=== PATIENT | male | born 1955 | race Caucasian/White ===

== ENCOUNTER 2019-06-10 14:50 | Emergency (ER) | payer MEDICAID ==
[~2019-06-10] VITALS: Ht 172.7 cm; Wt 100.0 kg
[2019-06-10] MEDS ORDERED: KETOROLAC 60MG/2ML VIAL IM ONE (16:15)
[2019-06-10 17:35] VITALS: BP 143/74
== END 2019-06-10 17:35 | disposition home or self-care (01) ==
LOC: ER 15:45
DX: S70.01XA Contusion of right hip, initial encounter (principal); G89.29 Other chronic pain; M54.9 Dorsalgia, unspecified; I10 Essential (primary) hypertension; J45.909 Unspecified asthma, uncomplicated; W18.39XA Other fall on same level, initial encounter; Y93.89 Activity, other specified; Y92.89 Other specified places as the place of occurrence of the external cause; Y99.8 Other external cause status
CPT/HCPCS: 73502; 96372; 99283; J1885

== ENCOUNTER 2019-09-06 08:56 | Inpatient (IN) | payer MEDICAID ==
[~2019-09-06] VITALS: Ht 175.3 cm; Wt 113.4 kg
[2019-09-06] MEDS ORDERED: SODIUM CHLORIDE 0.9% 1,000 ML IV ONE (09:44)
[2019-09-06 10:09] LABS: HEMATOCRIT. 31.3 % (42.0-52.0); HEMOGLOBIN. 9.5 g/dL (14.0-18.0); MEAN CORPUSCULAR HEMOGLOBIN 22.9 pg (28.0-32.0); MEAN CORPUSCULAR VOLUME 75.4 fL (80.0-94.0); MEAN PLATELET VOLUME 8.5 fl (7.4-10.4); PLATELET 96 x1000/uL (130-400); RED BLOOD CELL COUNT 4.15 mill/uL (4.7-6.1); RED CELL DISTRIBUTION WIDTH 21.7 % (11.6-14.6)
[2019-09-06 10:15] LABS: CHLORIDE 114 mEq/L (98-107)
[2019-09-06 10:16] LABS: INR 1.8; PROTHROMBIN TIME 18.5 sec (9.6-11.0)
[2019-09-06 10:20] LABS: ETHANOL BLOOD < 10 mg/dL
[2019-09-06 10:33] LABS: PLATELET ESTIMATE DECREASED
[2019-09-06 10:39] LABS: CREATINE KINASE 5046 IU/L (39-308)
[2019-09-06 10:48] LABS: CLARITY URINE CLEAR (CLEAR); COLOR URINE DARK YELLOW (YELLOW); KETONES URINE 1+ (NEGATIVE); LEUKOCYTE ESTERASE URINE 1+ (NEGATIVE); NITRITE URINE POSITIVE (NEGATIVE); OCCULT BLOOD URINE NEGATIVE (NEGATIVE); PH URINE 5.5 (4.5-8.0); PROTEIN URINE NEGATIVE (NEGATIVE); SPECIFIC GRAVITY URINE 1.025 (1.005-1.030)
[2019-09-06] MEDS ORDERED: PIPERACILLIN/TAZ 3.375G PREMIX 50 ML IV ONE (11:30)
[2019-09-06] MEDS ORDERED: VANCOMYCIN 1 G PREMIX 200 ML IV ONE (11:30)
[2019-09-06] MEDS ORDERED: SODIUM CHLORIDE 0.9% 1000ML BAG (SEPSIS BOLUS) IV ONE (11:30)
[2019-09-06 12:16] LABS: *AMPHETAMINES SCREEN URINE NEGATIVE (NEGATIVE); *BARBITURATES SCREEN URINE NEGATIVE (NEGATIVE)
[2019-09-06 12:17] LABS: *BENZODIAZEPINES SCREEN URINE NEGATIVE (NEGATIVE); *COCAINE SCREEN URINE NEGATIVE (NEGATIVE); METHADONE URINE SCREEN NEGATIVE (NEGATIVE); OPIATES URINE SCREEN NEGATIVE (NEGATIVE); PHENCYCLIDINE URINE SCREEN NEGATIVE (NEGATIVE)
[2019-09-06 12:19] LABS: CANNABINOID URINE SCREEN NEGATIVE (NEGATIVE)
[2019-09-06] MEDS ORDERED: LORAZEPAM 2MG/ML CPJ IV ONE ×2 (13:15→14:15)
[2019-09-06] MEDS ORDERED: DOCUSATE SODIUM 100MG CAPSULE PO PRN (19:00)
[2019-09-06] MEDS ORDERED: HYDROCODONE/ACETAMINOPHEN 5/325MG TABLET PO PRN (19:00)
[2019-09-06] MEDS ORDERED: ONDANSETRON HCL 4MG/2ML INJ IV PRN (19:00)
[2019-09-06] MEDS ORDERED: IPRATROPIUM/ALBUTEROL 0.5-3(2.5)MG/3ML NEB HHN PRN (19:00)
[2019-09-06] MEDS ORDERED: MAGNESIUM/ALUMINUM HYDROXIDE/SIMETHICONE 30ML UDC PO PRN (19:00)
[2019-09-06] MEDS ORDERED: CLONIDINE 0.1MG TABLET PO PRN (19:00)
[2019-09-06] MEDS ORDERED: ACETAMINOPHEN 325MG TABLET PO PRN (19:00)
[2019-09-06] MEDS ORDERED: DEXT 5%/LACTATED RINGERS 1,000 ML IV SCH (19:15)
[2019-09-06] MEDS ORDERED: DEXT 5%/0.9% NACL 1,000 ML IV SCH (19:15)
[2019-09-06] MEDS ORDERED: PIPERACILLIN/TAZOBACTAM 3.375 G in DEXT 5% WATER 100 ML IV SCH (19:30)
[2019-09-06] MEDS: LORAZEPAM 2MG/ML CPJ IV PRN ×2 (20:21→22:36)
[2019-09-06 22:30] VITALS: BP 143/92
[2019-09-06 23:56] LABS: HEPATITIS B SURFACE ANTIGEN NEGATIVE
[2019-09-07] VITALS (8 sets, daily range): BP systolic 121–188; BP diastolic 67–139
[2019-09-07] MEDS ORDERED: CEFTRIAXONE 1 G PREMIX 50 ML IV SCH
[2019-09-07 00:26] LABS: HEPATITIS A AB IGM NEGATIVE (NEGATIVE)
[2019-09-07] MEDS: LORAZEPAM 2MG/ML CPJ IV PRN (04:51)
[2019-09-07 05:28] LABS: CHLORIDE 123 mEq/L (98-107)
[2019-09-07 05:35] LABS: PHOSPHORUS 3.7 mg/dL (2.5-4.9)
[2019-09-07 05:36] LABS: LDL CHOLESTEROL 69 mg/dL (5-100)
[2019-09-07 05:39] LABS: HDL CHOLESTEROL 15 mg/dL (40-59)
[2019-09-07 05:50] LABS: CREATINE KINASE 2321 IU/L (39-308)
[2019-09-07 06:19] LABS: HEMATOCRIT. 25.7 % (42.0-52.0); HEMOGLOBIN. 8.4 g/dL (14.0-18.0); MEAN CORPUSCULAR HEMOGLOBIN 25.6 pg (28.0-32.0); MEAN CORPUSCULAR VOLUME 78.5 fL (80.0-94.0); MEAN PLATELET VOLUME 8.5 fl (7.4-10.4); PLATELET 81 x1000/uL (130-400); RED BLOOD CELL COUNT 3.28 mill/uL (4.7-6.1); RED CELL DISTRIBUTION WIDTH 21.8 % (11.6-14.6)
[2019-09-07] MEDS: SODIUM CHLORIDE 0.45% 1,000 ML IV SCH ×2 (07:15→15:15)
[2019-09-07] MEDS: PANTOPRAZOLE SODIUM 40 MG/VIAL IV SCH (10:41)
[2019-09-07 10:44] LABS: CREATINE KINASE 1844 IU/L (39-308)
[2019-09-07] MEDS: MULTIVITAMINS,THER W-MINERALS TABLET PO SCH (12:26)
[2019-09-07] MEDS: THIAMINE HCL 100MG TABLET PO SCH (12:26)
[2019-09-07] MEDS: VANCOMYCIN 1 G PREMIX 200 ML IV SCH (12:26)
[2019-09-07] MEDS: CHLORDIAZEPOXIDE 25MG CAPSULE PO SCH ×2 (13:41→21:48)
[2019-09-07 16:53] LABS: NUCLEATED RED BLOOD CELLS 3 /100 WBC
[2019-09-07 16:54] LABS: PLATELET ESTIMATE DECREASED
[2019-09-07 18:16] LABS: CREATINE KINASE 1665 IU/L (39-308)
[2019-09-08] VITALS (15 sets, daily range): BP systolic 134–155; BP diastolic 64–99
[2019-09-08] MEDS: SODIUM CHLORIDE 0.45% 1,000 ML IV SCH (00:25)
[2019-09-08] MEDS ORDERED: CEFTRIAXONE 1 G PREMIX 50 ML IV SCH (01:00)
[2019-09-08] MEDS: VANCOMYCIN 1 G PREMIX 200 ML IV SCH (01:05)
[2019-09-08] MEDS: LORAZEPAM 2MG/ML CPJ IV PRN (01:10)
[2019-09-08] MEDS: CHLORDIAZEPOXIDE 25MG CAPSULE PO SCH ×3 (05:54→21:54)
[2019-09-08 06:50] LABS: HEMATOCRIT. 25.9 % (42.0-52.0); HEMOGLOBIN. 8.7 g/dL (14.0-18.0); MEAN CORPUSCULAR HEMOGLOBIN 26.8 pg (28.0-32.0); MEAN CORPUSCULAR VOLUME 79.8 fL (80.0-94.0); MEAN PLATELET VOLUME 8.6 fl (7.4-10.4); PLATELET 78 x1000/uL (130-400); RED BLOOD CELL COUNT 3.25 mill/uL (4.7-6.1); RED CELL DISTRIBUTION WIDTH 21.9 % (11.6-14.6)
[2019-09-08 06:54] LABS: CHLORIDE 127 mEq/L (98-107)
[2019-09-08 07:00] LABS: PHOSPHORUS 2.6 mg/dL (2.5-4.9)
[2019-09-08 07:16] LABS: CREATINE KINASE 1249 IU/L (39-308)
[2019-09-08] MEDS ORDERED: POTASSIUM CHLORIDE 20MEQ TABLET SR PO NR (08:00)
[2019-09-08] MEDS: DEXTROSE 5% WATER 1,000 ML IV SCH ×2 (08:00→18:00)
[2019-09-08] MEDS: PANTOPRAZOLE SODIUM 40 MG/VIAL IV SCH (09:00)
[2019-09-08] MEDS: THIAMINE HCL 100MG TABLET PO SCH (09:00)
[2019-09-08] MEDS: MULTIVITAMINS,THER W-MINERALS TABLET PO SCH (09:00)
[2019-09-08] MEDS ORDERED: VANCOMYCIN 1250MG in DEXTROSE 5% WATER 250ML IV SCH (10:00)
[2019-09-08] MEDS: FOLIC ACID 1MG TABLET PO SCH (12:58)
[2019-09-08 13:21] LABS: PLATELET ESTIMATE DECREASED
[2019-09-08] MEDS: CEFAZOLIN 2,000 MG in DEXT 5% WATER 100 ML IV SCH (21:54)
[2019-09-08] MEDS: BACITRACIN 15GM TUBE TOP SCH (21:55)
[2019-09-09] VITALS (14 sets, daily range): BP systolic 74–167; BP diastolic 41–100
[2019-09-09] MEDS: DEXTROSE 5% WATER 1,000 ML IV SCH ×3 (06:24→21:46)
[2019-09-09] MEDS: CHLORDIAZEPOXIDE 25MG CAPSULE PO SCH ×3 (06:24→21:43)
[2019-09-09] MEDS: CEFAZOLIN 2,000 MG in DEXT 5% WATER 100 ML IV SCH ×3 (06:24→21:46)
[2019-09-09 06:35] LABS: CHLORIDE 120 mEq/L (98-107)
[2019-09-09 06:46] LABS: HEMOGLOBIN. 8.5 g/dL (14.0-18.0); MEAN CORPUSCULAR HEMOGLOBIN 26.3 pg (28.0-32.0); MEAN CORPUSCULAR VOLUME 80.3 fL (80.0-94.0); MEAN PLATELET VOLUME 8.5 fl (7.4-10.4); PLATELET 80 x1000/uL (130-400); RED BLOOD CELL COUNT 3.23 mill/uL (4.7-6.1); RED CELL DISTRIBUTION WIDTH 21.7 % (11.6-14.6)
[2019-09-09] MEDS ORDERED: POTASSIUM CHLORIDE 20MEQ/PACKET PO NR (08:15)
[2019-09-09] MEDS: PANTOPRAZOLE SODIUM 40 MG/VIAL IV SCH (09:05)
[2019-09-09] MEDS: MULTIVITAMINS,THER W-MINERALS TABLET PO SCH (09:06)
[2019-09-09] MEDS: BACITRACIN 15GM TUBE TOP SCH (09:06)
[2019-09-09] MEDS: THIAMINE HCL 100MG TABLET PO SCH (09:06)
[2019-09-09] MEDS: FOLIC ACID 1MG TABLET PO SCH (09:06)
[2019-09-10] VITALS (15 sets, daily range): BP systolic 107–152; BP diastolic 64–93
[2019-09-10] MEDS: CEFAZOLIN 2,000 MG in DEXT 5% WATER 100 ML IV SCH ×3 (06:11→22:57)
[2019-09-10] MEDS: CHLORDIAZEPOXIDE 25MG CAPSULE PO SCH ×3 (06:11→22:57)
[2019-09-10 07:33] LABS: BASOPHILS % 2.6 % (0.0-2.0); EOSINOPHILS % 4.5 % (0.0-5.0); HEMATOCRIT. 27.9 % (42.0-52.0); HEMOGLOBIN. 8.7 g/dL (14.0-18.0); LYMPHOCYTES % 39.2 % (20.0-50.0); MEAN CORPUSCULAR HEMOGLOBIN 23.9 pg (28.0-32.0); MEAN CORPUSCULAR VOLUME 76.6 fL (80.0-94.0); MEAN PLATELET VOLUME 8.3 fl (7.4-10.4); MONOCYTES % 14.4 % (2.0-8.0); NEUTROPHILS % 39.3 % (40.0-76.0); PLATELET 70 x1000/uL (130-400); RED BLOOD CELL COUNT 3.64 mill/uL (4.7-6.1); RED CELL DISTRIBUTION WIDTH 21.9 % (11.6-14.6)
[2019-09-10 07:39] LABS: CHLORIDE 111 mEq/L (98-107)
[2019-09-10 07:46] LABS: PHOSPHORUS 2.9 mg/dL (2.5-4.9)
[2019-09-10] MEDS: MULTIVITAMINS,THER W-MINERALS TABLET PO SCH (08:37)
[2019-09-10] MEDS: FOLIC ACID 1MG TABLET PO SCH (08:37)
[2019-09-10] MEDS: THIAMINE HCL 100MG TABLET PO SCH (08:37)
[2019-09-10] MEDS: PANTOPRAZOLE SODIUM 40 MG/VIAL IV SCH (08:37)
[2019-09-10] MEDS: BACITRACIN 15GM TUBE TOP SCH (08:38)
[2019-09-10 09:34] LABS: PLATELET ESTIMATE DECREASED
[2019-09-10] MEDS: DEXTROSE 5% WATER 1,000 ML IV SCH ×2 (13:18→20:00)
[2019-09-11] VITALS (12 sets, daily range): BP systolic 125–164; BP diastolic 66–121
[2019-09-11] MEDS: DEXTROSE 5% WATER 1,000 ML IV SCH (06:00)
[2019-09-11] MEDS: CHLORDIAZEPOXIDE 25MG CAPSULE PO SCH ×3 (06:10→21:54)
[2019-09-11] MEDS: CEFAZOLIN 2,000 MG in DEXT 5% WATER 100 ML IV SCH ×3 (06:10→21:54)
[2019-09-11 07:36] LABS: CHLORIDE 108 mEq/L (98-107)
[2019-09-11 08:43] LABS: BASOPHILS % 1.6 % (0.0-2.0); HEMATOCRIT. 27.5 % (42.0-52.0); HEMOGLOBIN. 8.4 g/dL (14.0-18.0); LYMPHOCYTES % 27.8 % (20.0-50.0); MEAN CORPUSCULAR HEMOGLOBIN 22.5 pg (28.0-32.0); MEAN CORPUSCULAR VOLUME 73.8 fL (80.0-94.0); MEAN PLATELET VOLUME 8.8 fl (7.4-10.4); MONOCYTES % 13.5 % (2.0-8.0); NEUTROPHILS % 53.1 % (40.0-76.0); PLATELET 74 x1000/uL (130-400); RED BLOOD CELL COUNT 3.72 mill/uL (4.7-6.1); RED CELL DISTRIBUTION WIDTH 21.8 % (11.6-14.6)
[2019-09-11] MEDS ORDERED: POTASSIUM CHLORIDE 20MEQ/PACKET PO SCH (09:00)
[2019-09-11] MEDS: FOLIC ACID 1MG TABLET PO SCH (09:06)
[2019-09-11] MEDS: THIAMINE HCL 100MG TABLET PO SCH (09:06)
[2019-09-11] MEDS: MULTIVITAMINS,THER W-MINERALS TABLET PO SCH (09:06)
[2019-09-11] MEDS: PANTOPRAZOLE SODIUM 40 MG/VIAL IV SCH (09:06)
[2019-09-11] MEDS: BACITRACIN 15GM TUBE TOP SCH (09:15)
[2019-09-11] MEDS ORDERED: LIDOCAINE HCL 1% 20ML VIAL (Pyxis) INJ ONE (13:16)
[2019-09-12] VITALS (10 sets, daily range): BP systolic 115–165; BP diastolic 67–92
[2019-09-12] MEDS: CHLORDIAZEPOXIDE 25MG CAPSULE PO SCH ×2 (05:13→13:36)
[2019-09-12] MEDS: CEFAZOLIN 2,000 MG in DEXT 5% WATER 100 ML IV SCH ×3 (05:13→22:17)
[2019-09-12] MEDS: PANTOPRAZOLE SODIUM 40 MG/VIAL IV SCH (08:16)
[2019-09-12] MEDS: FOLIC ACID 1MG TABLET PO SCH (08:16)
[2019-09-12] MEDS: THIAMINE HCL 100MG TABLET PO SCH (08:16)
[2019-09-12] MEDS: MULTIVITAMINS,THER W-MINERALS TABLET PO SCH (08:17)
[2019-09-12] MEDS: BACITRACIN 15GM TUBE TOP SCH (08:18)
[2019-09-12 11:38] LABS: CHLORIDE 110 mEq/L (98-107)
[2019-09-12 11:39] LABS: BASOPHILS % 1.4 % (0.0-2.0); EOSINOPHILS % 2.6 % (0.0-5.0); HEMATOCRIT. 26.6 % (42.0-52.0); HEMOGLOBIN. 8.4 g/dL (14.0-18.0); LYMPHOCYTES % 26.8 % (20.0-50.0); MEAN CORPUSCULAR HEMOGLOBIN 23.9 pg (28.0-32.0); MEAN CORPUSCULAR VOLUME 75.8 fL (80.0-94.0); MEAN PLATELET VOLUME 8.6 fl (7.4-10.4); MONOCYTES % 13.9 % (2.0-8.0); NEUTROPHILS % 55.3 % (40.0-76.0); PLATELET 69 x1000/uL (130-400); RED BLOOD CELL COUNT 3.51 mill/uL (4.7-6.1); RED CELL DISTRIBUTION WIDTH 21.3 % (11.6-14.6)
[2019-09-13] VITALS: BP 135/78
[2019-09-13 04:00] VITALS: BP 126/58
[2019-09-13] MEDS: CEFAZOLIN 2,000 MG in DEXT 5% WATER 100 ML IV SCH ×3 (05:13→21:10)
[2019-09-13] MEDS: OMEPRAZOLE 20MG CAPSULE EXTENDED RELEASE PO SCH (06:48)
[2019-09-13 08:00] VITALS: BP 137/66
[2019-09-13] MEDS: FOLIC ACID 1MG TABLET PO SCH (09:15)
[2019-09-13] MEDS: MULTIVITAMINS,THER W-MINERALS TABLET PO SCH (09:15)
[2019-09-13] MEDS: THIAMINE HCL 100MG TABLET PO SCH (09:15)
[2019-09-13 11:02] LABS: BASOPHILS % 1.3 % (0.0-2.0); EOSINOPHILS % 3.2 % (0.0-5.0); HEMATOCRIT. 25.4 % (42.0-52.0); HEMOGLOBIN. 8.2 g/dL (14.0-18.0); LYMPHOCYTES % 25.5 % (20.0-50.0); MEAN CORPUSCULAR HEMOGLOBIN 24.8 pg (28.0-32.0); MEAN CORPUSCULAR VOLUME 77.3 fL (80.0-94.0); MEAN PLATELET VOLUME 9.2 fl (7.4-10.4); MONOCYTES % 13.8 % (2.0-8.0); NEUTROPHILS % 56.2 % (40.0-76.0); PLATELET 62 x1000/uL (130-400); RED BLOOD CELL COUNT 3.28 mill/uL (4.7-6.1); RED CELL DISTRIBUTION WIDTH 22.5 % (11.6-14.6)
[2019-09-13 11:41] LABS: CHLORIDE 110 mEq/L (98-107)
[2019-09-13 11:56] LABS: CREATINE KINASE 58 IU/L (39-308)
[2019-09-13 12:00] VITALS: BP 105/52
[2019-09-13] MEDS: BACITRACIN 15GM TUBE TOP SCH (13:41)
[2019-09-13 16:00] VITALS: BP 118/62
[2019-09-13 16:15] LABS: PLATELET ESTIMATE DECREASED
[2019-09-13 20:00] VITALS: BP 127/72
[2019-09-14] VITALS: BP 130/67
[2019-09-14 04:00] VITALS: BP 114/74
[2019-09-14] MEDS: CEFAZOLIN 2,000 MG in DEXT 5% WATER 100 ML IV SCH ×3 (05:46→22:06)
[2019-09-14] MEDS: OMEPRAZOLE 20MG CAPSULE EXTENDED RELEASE PO SCH (06:25)
[2019-09-14 07:49] LABS: BASOPHILS % 0.9 % (0.0-2.0); HEMATOCRIT. 23.9 % (42.0-52.0); HEMOGLOBIN. 8.1 g/dL (14.0-18.0); LYMPHOCYTES % 25.9 % (20.0-50.0); MEAN CORPUSCULAR HEMOGLOBIN 26.4 pg (28.0-32.0); MEAN CORPUSCULAR VOLUME 77.5 fL (80.0-94.0); MEAN PLATELET VOLUME 8.8 fl (7.4-10.4); MONOCYTES % 12.1 % (2.0-8.0); NEUTROPHILS % 57.1 % (40.0-76.0); PLATELET 67 x1000/uL (130-400); RED BLOOD CELL COUNT 3.08 mill/uL (4.7-6.1); RED CELL DISTRIBUTION WIDTH 21.8 % (11.6-14.6)
[2019-09-14 07:55] LABS: CHLORIDE 109 mEq/L (98-107)
[2019-09-14 08:00] VITALS: BP 127/67
[2019-09-14 08:09] LABS: CREATINE KINASE 52 IU/L (39-308)
[2019-09-14] MEDS: MULTIVITAMINS,THER W-MINERALS TABLET PO SCH (08:23)
[2019-09-14] MEDS: FOLIC ACID 1MG TABLET PO SCH (08:23)
[2019-09-14] MEDS: THIAMINE HCL 100MG TABLET PO SCH (08:23)
[2019-09-14] MEDS: BACITRACIN 15GM TUBE TOP SCH (08:36)
[2019-09-14 12:00] VITALS: BP 131/72
[2019-09-14 16:00] VITALS: BP 110/71
[2019-09-14 20:00] VITALS: BP 143/71
[2019-09-15] VITALS: BP 138/65
[2019-09-15 04:00] VITALS: BP 136/67
[2019-09-15] MEDS: CEFAZOLIN 2,000 MG in DEXT 5% WATER 100 ML IV SCH ×2 (06:11→13:59)
[2019-09-15] MEDS: OMEPRAZOLE 20MG CAPSULE EXTENDED RELEASE PO SCH (06:11)
[2019-09-15 08:11] LABS: EOSINOPHILS % 3.4 % (0.0-5.0); HEMATOCRIT. 24.6 % (42.0-52.0); HEMOGLOBIN. 7.8 g/dL (14.0-18.0); LYMPHOCYTES % 22.3 % (20.0-50.0); MEAN CORPUSCULAR HEMOGLOBIN 24.2 pg (28.0-32.0); MEAN CORPUSCULAR VOLUME 76.1 fL (80.0-94.0); MONOCYTES % 14.6 % (2.0-8.0); NEUTROPHILS % 58.7 % (40.0-76.0); PLATELET 64 x1000/uL (130-400); RED BLOOD CELL COUNT 3.23 mill/uL (4.7-6.1); RED CELL DISTRIBUTION WIDTH 22.1 % (11.6-14.6)
[2019-09-15 08:43] LABS: CHLORIDE 108 mEq/L (98-107)
[2019-09-15] MEDS: MULTIVITAMINS,THER W-MINERALS TABLET PO SCH (08:46)
[2019-09-15] MEDS: FOLIC ACID 1MG TABLET PO SCH (08:46)
[2019-09-15] MEDS: BACITRACIN 15GM TUBE TOP SCH (08:47)
[2019-09-15] MEDS: THIAMINE HCL 100MG TABLET PO SCH (08:47)
[2019-09-15] MEDS ORDERED: OMEP20CA5 PO (17:44)
[2019-09-15] MEDS ORDERED: THIA100T72 PO (17:44)
[2019-09-15] MEDS ORDERED: FOLI-43 PO (17:44)
[2019-09-15 18:52] VITALS: BP 121/81
[2019-09-15 20:00] VITALS: BP 141/76
== END 2019-09-15 21:20 | DRG 720 ==
LOC: ER 08:56 → EDBEDREQSVC 12:34 → EDBEDREQ 12:34 → ENRESERV 21:21 → 3WST 22:22 → 5WST 09-12 15:37
PROVIDERS: ADMIT Internal Medicine; ATTEND Internal Medicine
PROC: 02HV33Z Insertion of Infusion Device into Superior Vena Cava, Percutaneous Approach (ICD-10-PCS; principal; 2019-09-11)
PROC: B548ZZA Ultrasonography of Superior Vena Cava, Guidance (ICD-10-PCS; 2019-09-11)
DX: A41.01 Sepsis due to Methicillin susceptible Staphylococcus aureus (principal); G93.41 Metabolic encephalopathy; E87.2 Acidosis; N17.9 Acute kidney failure, unspecified; D68.4 Acquired coagulation factor deficiency; D69.2 Other nonthrombocytopenic purpura; D69.6 Thrombocytopenia, unspecified; E87.0 Hyperosmolality and hypernatremia; E86.9 Volume depletion, unspecified; M62.82 Rhabdomyolysis; R65.20 Severe sepsis without septic shock; I10 Essential (primary) hypertension; J45.909 Unspecified asthma, uncomplicated; E87.8 Other disorders of electrolyte and fluid balance, not elsewhere classified; F10.20 Alcohol dependence, uncomplicated; S91.301A Unspecified open wound, right foot, initial encounter; S91.302A Unspecified open wound, left foot, initial encounter; B19.20 Unspecified viral hepatitis C without hepatic coma; G62.1 Alcoholic polyneuropathy; K76.0 Fatty (change of) liver, not elsewhere classified; K80.20 Calculus of gallbladder without cholecystitis without obstruction; D64.9 Anemia, unspecified; M17.12 Unilateral primary osteoarthritis, left knee; R26.89 Other abnormalities of gait and mobility; S90.415A Abrasion, left lesser toe(s), initial encounter; S90.414A Abrasion, right lesser toe(s), initial encounter; K70.30 Alcoholic cirrhosis of liver without ascites; K70.40 Alcoholic hepatic failure without coma; W18.39XA Other fall on same level, initial encounter; Y93.89 Activity, other specified; Y92.89 Other specified places as the place of occurrence of the external cause; Y99.8 Other external cause status; Z78.1 Physical restraint status; Z86.73 Personal history of transient ischemic attack (TIA), and cerebral infarction without residual deficits; Z68.36 Body mass index [BMI] 36.0-36.9, adult
CPT/HCPCS: 36415; 70551; 71045; 73560; 74176; 76700; 76937; 80048; 80053; 80061; 80076; 80202; 80305; 80320; 81003; 82140; 82550; 82962; 83605; 83735; 84100; 84134; 84443; 84484; 85025; 86705; 86709; 86803; 87340; 92610; 93005; 93306; 93970; 96365; 97116; 97162; 97167; 97530; 97535; 99291; A6261; C1725; C9113; J0690; J0696; J2060; J2543; J3370; J3490; J7030; J7040; J7060; J7070; A4315; G0480